=== PATIENT | male | born 1945 | race Hispanic/Latino ===

== ENCOUNTER 2022-10-10 05:34 | Day surgery (SDC) | payer OTHER ==
[2022-10-06 12:43] LABS: BASOPHILS # (AUTO) 0.03 K/uL (0.00-0.20); BASOPHILS % (AUTO) 0.3 % (0.0-5.0); EOSINOPHILS # (AUTO) 0.05 K/uL (0.00-0.70); EOSINOPHILS % (AUTO) 0.5 % (0.0-8.0); HEMATOCRIT 34.3 % (42-54); IMMATURE GRANULOCYTE ABSOLUTE 0.05 K/uL (0-1); LYMPHOCYTES # (AUTO) 1.1 K/uL (1.0-4.8); LYMPHOCYTES % (AUTO) 10.6 % (21.0-51.0); MEAN CORPUSCULAR HEMOGLOBIN 30.4 pg (27.0-33.0); MEAN CORPUSCULAR HGB CONC 32.7 g/dL (32.0-36.0); MEAN CORPUSCULAR VOLUME 93.2 fL (79-99); MONOCYTES % (AUTO) 9.3 % (3.0-13.0); NEUTROPHILS # (AUTO) 8.4 K/uL (1.8-7.7); NEUTROPHILS % (AUTO) 78.8 % (40.0-77.0); PLATELET COUNT (AUTO) 193 K/uL (130-400); RED BLOOD CELL COUNT(AUTO) 3.68 MIL/uL (4.50-6.20); RED CELL DISTRIBUTION WIDTH 16.3 % (11.0-15.5); WHITE BLOOD COUNT (AUTO) 10.6 K/uL (4.8-10.8)
[2022-10-06 12:56] LABS: CREATININE 1.4 mg/dL (0.5-1.5)
[2022-10-06 13:10] VITALS: BP 166/81; PULSE 84; RESP 16
[2022-10-06 13:12] LABS: INR 0.95 (0.85-1.15); PROTHROMBIN TIME 11.1 SEC (9.6-11.6)
[2022-10-06 13:14] LABS: PARTIAL THROMBOPLASTIN TIME 32.5 SEC (26.3-35.5)
[2022-10-06 13:19] LABS: B-TYPE NATRIURETIC PEPTIDE 29 pg/mL (0-100)
[2022-10-10] VITALS (11 sets, daily range): BP systolic 104–141; BP diastolic 57–80; PULSE 74–84; RESP 15–18
[~2022-10-10] VITALS: Ht 182.9 cm; Wt 111.6 kg
[~2022-10-10 05:34] MED LIST: ALLO100T PO; ATOR40TA71 PO; BUSP10TA3 PO; CARV12.511 PO; CLOP75TA32 PO; CYCL-309 PO; DIVA500T52 PO; FOSI40TA71 PO; FURO80TA3 PO; ISOS120T14 PO; LEVO75TA10 PO; NITR0.4T50 SL; POTASSIUM CHLORIDE PO; PREG150C46 PO; RANO10005 PO; SERT-440 PO; TAMS-1 PO; TRAZ-187 PO
[2022-10-10] MEDS ORDERED: 0.9%NACL 1000ML 1,000 ML IV ONE (06:54)
[2022-10-10] MEDS ORDERED: LIDOCAINE HCL 400MG/20ML VIAL ONE (07:29)
[2022-10-10] MEDS ORDERED: SODIUM BICARB 50MEQ 50ML VIAL 50 ML ONE (07:29)
[2022-10-10] MEDS ORDERED: MIDAZOLAM HCL 1 MG/ML 2ML VIAL ONE (07:30)
[2022-10-10] MEDS ORDERED: BIVALIRUDIN 250 MG/VIAL IV ONE (07:30)
[2022-10-10] MEDS ORDERED: IOHEXOL 350 MG/ML 100ML INFUS..BTL IV ONE (07:30)
[2022-10-10] MEDS ORDERED: FENTANYL CITRATE PF 50 MCG/1 ML 2ML VIAL ONE (07:30)
[2022-10-10] MEDS ORDERED: IOHEXOL-350 50ML VIAL IV ONE (07:30)
[2022-10-10] MEDS ORDERED: NICARDIPINE 25MG INJ IV ONE (07:31)
[2022-10-10] MEDS ORDERED: NITROGLYCERIN 50MG VIAL ONE (07:34)
[2022-10-10] MEDS ORDERED: HEPARIN 10,000 UNIT/10ML (1,000 UNIT/ML) VIAL ONE (07:44)
[2022-10-10] MEDS ORDERED: 0.9% NACL 500ML IV.SOLN 500 ML IV SCH (09:00)
== END 2022-10-10 13:40 | disposition home or self-care (01) ==
LOC: DAH 05:34
PROVIDERS: ATTEND Internal Medicine Cardiovascular Disease
DX: I25.119 Atherosclerotic heart disease of native coronary artery with unspecified angina pectoris (principal); E11.22 Type 2 diabetes mellitus with diabetic chronic kidney disease; I12.9 Hypertensive chronic kidney disease with stage 1 through stage 4 chronic kidney disease, or unspecified chronic kidney disease; N18.9 Chronic kidney disease, unspecified; E78.5 Hyperlipidemia, unspecified; E11.40 Type 2 diabetes mellitus with diabetic neuropathy, unspecified; I25.2 Old myocardial infarction; F32.9 Major depressive disorder, single episode, unspecified; G47.33 Obstructive sleep apnea (adult) (pediatric); Z79.01 Long term (current) use of anticoagulants; Z79.899 Other long term (current) drug therapy; Z95.5 Presence of coronary angioplasty implant and graft; Z82.49 Family history of ischemic heart disease and other diseases of the circulatory system; Z72.89 Other problems related to lifestyle; Z98.890 Other specified postprocedural states
CPT/HCPCS: 80048; 83880; 85025; 85610; 85730; 71045; 93005; 93458; 82948 ×2; 36415; C1769; C1894; J3010; J3490 ×4; J7030; J1644 ×2; J2250; Q9967 ×2; A4215; A4222; A4221; A4663; A4216; A4606; Q9965; A4223 ×3; 99156; 99157; J0583

== ENCOUNTER → 2024-01-19 | Outpatient (CLI) | payer OTHER ==
[~2024-01-19] MED LIST changes: +APIX5TAB PO; +ASPI-1197 PO; +CARB-336 PO; -CARV12.511 PO; +CEFT1VIA15 IV; -CLOP75TA32 PO; +CYAN100099 PO; -CYCL-309 PO; +FERR-82 PO; -FOSI40TA71 PO; +FURO20TA4 PO; -FURO80TA3 PO; -ISOS120T14 PO; +PANT40TA55 PO; -POTASSIUM CHLORIDE PO; -PREG150C46 PO; -RANO10005 PO; -SERT-440 PO; -TRAZ-187 PO
[2024-01-19] MEDS: REGADENOSON 0.4 MG/5 ML PF SYG IVP SCH (12:03)
--- NOTE | 2024-01-19 18:47 | HMCSR ---
APPROVED REPORT Height: 6 ft 0in Weight: 196 lbs TEST INDICATIONS HEART FAILURE The imaging protocol used to acquire images was Rest Tc-99m/stress Tc-99m 1 day Consent: The procedure was explained and understood by the patient. Informerd consent was witnessed Tony Cat RN First, low dose rest was performed then high dose stress. RESTING DATA: The resting ekg shows: NSR Rest SPECT myocardial perfusion imaging was performed in supine position minutes following the intra venous injection of 8 mCi of Tc-99 Sestamibi. Time of rest injection: 09:30: Date: 01/19/2024 PHARMACOLOGIC STRESS: Pharmacologic stress test was performed by injecting regadenoson 0.4 mg IV push followed by the intra venous injection of 27 mCi of Tc-99 Sestamibi. Time of stress injection: 11:40: Date: 01/19/2024 Heart Rate at time of stress injection: 95 bpm. The images were gated to evaluate regional wall motion and calculate left ventricular ejection fracti on. STRESS DETAILS Reason for Termination: Infusion complete Stress Symptoms: Dyspnea Max HR Achieved: 104 bpm % of APMHR Achieved: 85 Max Blood Pressure: 108/67 mmHg Stress ECG: NSR Conclusion Inferior and apical infarct No ischemia LV ejection fraction 68% Normal LV wall motion No increased lung uptake Normal LV size at rest and stress There may be more viability than suggested by the spect images.
== END | disposition home or self-care (01) ==
LOC: RAH 07:56
PROVIDERS: ATTEND Internal Medicine Cardiovascular Disease
DX: I50.22 Chronic systolic (congestive) heart failure (principal); Z82.49 Family history of ischemic heart disease and other diseases of the circulatory system
CPT/HCPCS: 78452; 93017; J2785; A9500 ×2